=== PATIENT | male | born 1970 | race American Indian/Alaskan Native ===

== ENCOUNTER 2021-10-13 12:45 | Emergency (ER) | payer OTHER ==
[2021-10-13] MEDS ORDERED: IBUPROFEN 800 MG TAB PO ONE (14:41)
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
--- NOTE | 2021-10-13 15:24 | XRay Report ---
Left knee 4 views INDICATION: Knee pain FINDINGS: Alignment appears normal. There is some irregularity along the inferior aspect of the [place] la which could represent an incomplete fracture with overlying soft tissue swelling. No displaced fra ctures seen. IMPRESSION: Questionable lucencies along the inferior aspect of the patella lateral view. An incomplete fracture cannot be completely excluded. No displaced fractures seen. Correlation with point tenderness on exam ination. Postoperative change in the proximal tibia. Signer Name: Madhu Bray MD Signed: 10/13/2021 3:20 PM Workstation Name: [id number]
[2021-10-13 18:48] VITALS: BP 142/86
== END 2021-10-13 18:46 | disposition home or self-care (01) ==
LOC: ED 12:45
DX: S89.92XA Unspecified injury of left lower leg, initial encounter (principal); Z79.899 Other long term (current) drug therapy; V89.2XXA Person injured in unspecified motor-vehicle accident, traffic, initial encounter; Y93.89 Activity, other specified; Y92.488 Other paved roadways as the place of occurrence of the external cause; Y99.8 Other external cause status
CPT/HCPCS: 99283; 99284